=== PATIENT | male | born 1965 | race Caucasian/White ===

== ENCOUNTER 2016-08-28 08:39 | Inpatient (IN) | payer OTHER ==
--- NOTE | ~2016-08-28 | DS ---
Unit #: [id number] #: [id number] Patient: ZELDA JONES [id number] [address] [place], [place] [address] [id number] I MR#: [id number] NAME: ZELDA JONES ROOM: 565 Age: 51 Sex: M Admission Date: 08/28/2016 : 1965 Discharge Date: 08/30/2016 Attending Physician: Balta Wilson M.D. Primary Care Physician: Katelyn Primary Care Physician DISCHARGE SUMMARY CONSULTANTS 1. Dr. Sykes. 2. Dr. Munson. PROCEDURE DONE Incision and drainage of abscess. ADMITTING DIAGNOSIS Infected abscess of right biceps. DISCHARGE DIAGNOSES 1. Infected abscess of right biceps. 2. History of hypertension. 3. Hyperlipidemia. 4. Hepatitis C. HISTORY OF PRESENT ILLNESS The patient is a 51-year-old man with a past medical history of hypertension, history of hepatitis C, hyperlipidemia who presented to the hospital with a chief complaint of pain and swelling in the right arm. Apparently, he noticed a boil. He tried to crush it and the infection spread. In the initial evaluation, he had a temperature up 101, pulse rate 100, respiratory rate 20, blood pressure 145/100. He is admitted for sepsis and surgery was consulted. The sepsis is secondary to skin and soft tissue infections secondary to (1) . He had an I and D of the abscess done. He is getting wound care. Surgery mentioned it is okay to discharge from their standpoint. He had initially 1/2 blood cultures positive. The blood culture came back as coag negative staphylococcus which was a contaminate. ID is consulted. ID recommended to transition antimicrobials to oral at the time of discharge to oral Keflex. He is doing clinically better. He will be discharged home. He is instructed to follow with wound care clinic and also with primary care. His tox screen is positive for opiates, marijuana, and tricyclics. Will be hesitant to give narcotics at the time of discharge, explained in detail to the patient. PHYSICAL EXAMINATION On the day of the discharge: VITAL SIGNS: Temperature 98.4, pulse rate 74, respiratory rate 16, blood pressure 149/98. GENERAL: Patient is alert and oriented x3, lying in the bed in no acute distress. HEENT: Normocephalic and atraumatic. No icterus. PERRLA. Extraocular muscles intact. Unit #: [id number] #: [id number] Patient: ZELDA JONES NECK: Supple. No JVD. HEART: S1, S2. Regular rate and rhythm. CHEST: Bilateral equal air entry. Clear to auscultation. ABDOMEN: Soft, nontender. EXTREMITIES: Right arm in dressing. DISCHARGE MEDICATIONS 1. Keflex 1 g p.o. three times a day for two weeks. 2. Norvasc 5 mg p.o. daily. 3. Ibuprofen 600 mg p.o. q.6 p.r.n. for pain. 4. We are also giving sodium chloride solution for the wound dressing changes. FOLLOWUP He is instructed to follow with his primary care and with wound care physician. Total time spent in his care, 28 minutes. Dictated by... Alisa Wills TD: 09/02/2016 11:46 JOB #: [id number] DISCHARGE SUMMARY X X DISCHARGE SUMMARY
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
--- NOTE | ~2016-08-28 | EKG ---
PATIENT: ZELDA JONES UNIT #: [id number] Ventricular Rate: 73 BPM Atrial Rate: 73 BPM P-R Interval: 170 ms QRS Duration: 94 ms Q-T Interval: 418 ms QTC Calculation(Bezet): 460 ms P [place]: 64 degrees Calculated R [place]: -18 degrees Calculated T [place]: -8 degrees Diagnosis Line: Normal sinus rhythm Diagnosis Line: Normal ECG Diagnosis Line: No previous ECGs available Diagnosis Line: Confirmed by MARK ANTHONY PYLE MD ([id number]) on Diagnosis Line: 08/28/2016 11:29:28 AM INTERPRETING MD: LASHANDA REED
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
--- NOTE | ~2016-08-28 | OR ---
Unit #: [id number] #: [id number] Patient: ZELDA JONES [id number] [address] [place], [place] [address] [id number] I MR#: [id number] NAME: ZELDA JONES ROOM: 565 Date of Procedure: 08/28/2016 Admission Date: 08/28/2016 Surgeon: Isaías Sykes M.D. : 1965 Attending Physician: Balta Wilson M.D. OPERATIVE REPORT PREOPERATIVE DIAGNOSIS Large abscess, right upper arm. POSTOPERATIVE DIAGNOSIS Large abscess, right upper arm. PROCEDURE PERFORMED Incision and drainage of large abscess, right upper arm with sharp excisional debridement of skin and subcutaneous tissues, 10 x 6 cm area. ANESTHESIA General LMA anesthesia with 0.5% Marcaine plain local anesthesia. FINDINGS The patient had a very large abscess extending from the inferior aspect of the deltoid all the way to near the antecubital fossa. Incision and drainage and sharp debridement was performed of this area. FLUIDS 1000 mL of crystalloid. ESTIMATED BLOOD LOSS 20 mL. DRAINS None. TUBES None. SPECIMENS Sent to microbiology. COMPLICATIONS None apparent. CONDITION The patient tolerated the procedure well. INDICATIONS FOR PROCEDURE The patient is a 51-year-old white male, who 4 to 5 days ago developed a boil on lateral aspect of his right upper arm. He tried to thalia this Unit #: [id number] #: [id number] Patient: ZELDA JONES with a pin and since that time, has drained purulent material. He presents at this time for incision and drainage and debridement. DESCRIPTION OF PROCEDURE After obtaining informed consent as well as receiving scheduled antibiotics, the patient was brought to the operating room and after adequate general LMA anesthesia was obtained, had his right upper extremity prepped and draped in a sterile fashion. An incision was made over the area of purulent drainage and a large cavity was entered. A large amount of purulent material was evacuated. The incision was extended inferiorly and superiorly in order to unroof a large portion of the abscess cavity. All loculations were broken up. The patient required some sharp excisional debridement of the overlying skin as it had some degree of ischemia. This was sharply debrided with a scalpel on both the skin and subcutaneous tissue. Some necrotic tissue at the base were sharply debrided as well. A 10 x 6 cm area was involved. Hemostasis was obtained with the Bovie. The wound was irrigated. Hemostasis obtained with the Bovie again and the wound was packed with a saline soaked Kerlix followed by dry dressing and Kerlix wrap and tape. Needle counts, sponge counts, and instrument counts were all correct as reported by the scrub nurse x2. The patient went from the operating room to the recovery room in stable condition. Dictated by... Alisa Rendon/luis TD: 08/29/2016 06:10 JOB #: [id number] CC: [facility] OPERATIVE REPORT X Isaías Sykes MD X PROCEDURE OPERATIVE NOTE
[~2016-08-28 08:39] MED LIST: FLEXERIL10 MG PO; HYDROCHLOROTHIA25 MG PO; LORTAB 5/500 TA1 TA1 PO; MEDROL PO
[2016-08-28 09:00] LABS: BASOPHIL# 0.1 X10e3 (0-0.3); BASOPHIL% 0.4 % (0-2.5); DIFF IND YES; EOSINOPHIL# 0.1 X10e3 (0-0.7); EOSINOPHIL% 0.7 % (0.0-7.0); HEMATOCRIT 44.5 % (38.0-50.0); HEMOGLOBIN 15.1 gm/dL (13.0-16.0); LYMPHOCYTE# 3.1 X10e3 (1.0-3.5); LYMPHOCYTE% 17.4 % (17.0-45.0); MEAN CELL VOLUME 92.4 FL (83-96); MEAN CORPUSCULAR HEMOGLOBIN 31.3 PG (28-34); MEAN CORPUSCULAR HGB CONC 33.9 g/dL (30-36); MEAN PLATELET VOLUME 8.6 FL (6.5-11.5); MONOCYTE# 2.5 X10e3 (0-1.0); MONOCYTE% 14.1 % (3.0-12.0); NEUTROPHIL# 12.2 X10e3 (1.5-7.1); NEUTROPHIL% 67.4 % (40-75); PLATELET COUNT 263 X10e3 (140-420); RED BLOOD COUNT 4.82 X10e (3.90-5.60); RED CELL DISTRIBUTION WIDTH 13.3 % (11.0-15.5)
[2016-08-28 09:26] LABS: BLOOD UREA NITROGEN 13 mg/dL (9-23); BUN/CREATININE RATIO 18.57; CALCIUM SERUM 9.5 mg/dL (8.4-10.2); CARBON DIOXIDE 24 mmol/L (22-31); CHLORIDE 94 mmol/L (100-111); CREATININE SERUM 0.7 mg/dL (0.6-1.4); GLOM FILT RATE Estimated ABOVE60 mL/min (>60); GLUCOSE FASTING 239 mg/dL (70-110); POTASSIUM 3.3 mmol/L (3.5-5.1); SODIUM 131 mmol/L (135-145)
[2016-08-28 09:32] LABS: ALBUMIN SERUM 3.7 g/dL (3.5-5.0); BILIRUBIN, DIRECT 0.2 mg/dL (0.0-0.2); BILIRUBIN,INDIRECT 0.8 mg/dL (0.0-0.9); PROTEIN TOTAL SERUM 7.5 g/dL (6.0-8.3)
[2016-08-28 10:02] LABS: PLATELET ESTIMATE NORMAL (NORMAL)
[2016-08-28 10:03] LABS: RBC NORMAL YES
[2016-08-28 11:21] LABS: AMPHETAMINE NEG (NEG); BARBITURATES NEG (NEG); BENZODIAZEPINES NEG (NEG); COCAINE NEG (NEG); MARIJUANA POS (NEG); OPIATES POS (NEG); TRICYCLIC ANTIDEPRESSANTS POS (NEG); U METHADONE NEG (NEG)
[2016-08-29 05:31] LABS: HEMOGLOBIN 13.3 gm/dL (13.0-16.0); MEAN CELL VOLUME 95.2 FL (83-96); MEAN CORPUSCULAR HEMOGLOBIN 31.7 PG (28-34); MEAN CORPUSCULAR HGB CONC 33.3 g/dL (30-36); MEAN PLATELET VOLUME 9.4 FL (6.5-11.5); RED BLOOD COUNT 4.21 X10e (3.90-5.60); RED CELL DISTRIBUTION WIDTH 13.1 % (11.0-15.5)
[2016-08-29 05:45] LABS: INR 1.2; PROTHROMBIN TIME (PATIENT) 12.3 SECONDS (9.6-11.5)
[2016-08-29 06:24] LABS: ALBUMIN SERUM 2.8 g/dL (3.5-5.0); ALKALINE PHOSPHATASE 78 U/L (32-92); ALT (SGPT) 9 U/L (10-40); AST (SGOT) 11 U/L (10-42); BILIRUBIN,TOTAL 0.5 mg/dL (0.2-2.0); BLOOD UREA NITROGEN 12 mg/dL (9-23); BUN/CREATININE RATIO 17.14; CALCIUM SERUM 8.6 mg/dL (8.4-10.2); CARBON DIOXIDE 28 mmol/L (22-31); CHLORIDE 106 mmol/L (100-111); CREATININE SERUM 0.7 mg/dL (0.6-1.4); GLOM FILT RATE Estimated ABOVE60 mL/min (>60); GLUCOSE FASTING 110 mg/dL (70-110); MAGNESIUM 2.3 mg/dL (1.6-3.0); POTASSIUM 4.4 mmol/L (3.5-5.1); PROTEIN TOTAL SERUM 6.1 g/dL (6.0-8.3)
[2016-08-29 06:38] LABS: SODIUM 142 mmol/L (135-145)
[2016-08-30 05:11] LABS: HEMATOCRIT 38.8 % (38.0-50.0); MEAN CELL VOLUME 94.4 FL (83-96); MEAN CORPUSCULAR HEMOGLOBIN 31.5 PG (28-34); MEAN CORPUSCULAR HGB CONC 33.4 g/dL (30-36); RED BLOOD COUNT 4.11 X10e (3.90-5.60); RED CELL DISTRIBUTION WIDTH 13.1 % (11.0-15.5); WHITE BLOOD COUNT 8.4 X10e3 (4.0-10.5)
[2016-08-30 05:55] LABS: BLOOD UREA NITROGEN 13 mg/dL (9-23); BUN/CREATININE RATIO 18.57; CALCIUM SERUM 8.1 mg/dL (8.4-10.2); CARBON DIOXIDE 25 mmol/L (22-31); CHLORIDE 101 mmol/L (100-111); CREATININE SERUM 0.7 mg/dL (0.6-1.4); GLOM FILT RATE Estimated ABOVE60 mL/min (>60); GLUCOSE FASTING 149 mg/dL (70-110); POTASSIUM 3.8 mmol/L (3.5-5.1); SODIUM 130 mmol/L (135-145)
[2016-08-31] MEDS ORDERED: KEFLEX PO (08:04)
[2016-08-31] MEDS ORDERED: IBUPROFEN600 MG PO (08:05)
[2016-08-31] MEDS ORDERED: NORVASC PO (08:06)
[2016-08-31] MEDS ORDERED: DAKIN'S473 M1 TOP (08:09)
== END 2016-08-31 18:59 | disposition home or self-care (01) | DRG 571 ==
LOC: CED 08:39 → CEDOF 09:50 → C5C 13:37
PROVIDERS: Family Medicine; Internal Medicine; Physician Assistant; Surgery
PROC: 0JBD0ZZ Excision of Right Upper Arm Subcutaneous Tissue and Fascia, Open Approach (ICD-10-PCS; principal; 2016-08-28 17:00)
PROC: B24BZZZ Ultrasonography of Heart with Aorta (ICD-10-PCS; 2016-08-29)
DX: L02.413 Cutaneous abscess of right upper limb (principal); F11.20 Opioid dependence, uncomplicated; I10 Essential (primary) hypertension; F17.210 Nicotine dependence, cigarettes, uncomplicated; E78.5 Hyperlipidemia, unspecified; B19.20 Unspecified viral hepatitis C without hepatic coma; F12.20 Cannabis dependence, uncomplicated; R73.9 Hyperglycemia, unspecified; E87.6 Hypokalemia; Z88.0 Allergy status to penicillin
CPT/HCPCS: 36415; 80048; 80053; 80076; 80307; 82947; 83036; 83605; 83735; 85025; 85027; 85610; 87040; 87070; 87075; 87076; 87205; 93005; 93306; 96361; 96374; 96375; 99285; J0696; J1650; J1815; J1885; J1956; J2250; J2270; J2405; J3010; J3370; J3475

== ENCOUNTER 2016-09-06 01:58 | Emergency (ER) | payer OTHER ==
[~2016-09-06 01:58] MED LIST changes: +DAKIN'S473 M1 TOP; +IBUPROFEN600 MG PO; +KEFLEX PO; +NORVASC PO
== END 2016-09-06 02:04 | disposition home or self-care (01) ==
LOC: CED 01:58
DX: Z48.01 Encounter for change or removal of surgical wound dressing (principal); Z76.0 Encounter for issue of repeat prescription; I10 Essential (primary) hypertension; F17.210 Nicotine dependence, cigarettes, uncomplicated; Z79.899 Other long term (current) drug therapy; Z88.0 Allergy status to penicillin
CPT/HCPCS: 99282

== ENCOUNTER 2017-02-05 20:00 | Inpatient (IN) | payer OTHER ==
[~2017-02-05] VITALS: Ht 172.7 cm; Wt 82.6 kg
--- NOTE | ~2017-02-05 | CO ---
Unit #: [id number] #: [id number] Patient: ZELDA JONES [id number] [facility] [address] [place] [address] [id number] I MR#: [id number] NAME: ZELDA JONES ROOM: [facility] Age: 51 Sex: M Admission Date: 02/05/2017 : 1965 Attending Physician: Kimberley Rodriguez M.D. Primary Care Physician: Primary Care Physician No Consultation Date: 02/09/2017 CONSULTATION REPORT ORDERING PROVIDER Dr. Rodriguez. REASON FOR CONSULT Increased blood pressure. SUBJECTIVE The patient denies being on blood pressure medication currently. He denies any chest pain, headache, or shortness of breath. OBJECTIVE Blood pressure noted to be 177/122 on admission. He was given one time dose of clonidine and blood pressure did go down a little bit, however, it still remained elevated at 147/94. His examination was unremarkable. Heart was regular rate and rhythm. ASSESSMENT High blood pressure. PLAN The patient was started on Norvasc 5 mg yesterday. Blood pressure was rechecked today and he is 139/87. We will continue to monitor. Dictated by... Thor Farias/luis TD: 02/10/2017 00:29 JOB #: [id number] CONSULTATION REPORT Page 1 of 1 X MAR VELÁZQUEZ APRN CONSULTATION REPORT
--- NOTE | ~2017-02-05 | PN ---
Unit #: [id number] #: [id number] Patient: ZELDA JONES [id number] [facility] [address] [place] [address] [id number] I MR#: [id number] NAME: ZELDA JONES ROOM: 82 Age: 51 Sex: M Admission Date: 02/05/2017 : 1965 Attending Physician: Kimberley Rodriguez M.D. Admitting Physician: Kimberley Rodriguez M.D. Primary Care Physician: Primary Care Physician Katelyn MELTON PROGRESS NOTES DATE 02/09/2017 DISCUSSION Mr. Jones is a 51-year-old, white male who was seen today and chart was reviewed and case was discussed with the staff. He has been anxious, withdrawn and rather seclusive to himself. He has been cooperative with the treatment recommendations and appears to be coming out of the detox without any complications. MENTAL STATUS EXAM Middle-aged white male who was casually dressed with fair personal hygiene, appears to be in no acute distress or discomfort. He was awake and alert on interaction with intact orientation. His mood was anxious with congruent affect. His speech was slow and goal directed. He denies any suicidal or homicidal ideation. His insight and judgement remains slightly impaired. TREATMENT PLAN 1. We will continue him on his current medications and treatment protocol. We will monitor his response to the medication and make further adjustments as needed. 2. We will continue to follow up. Dictated by... Alisa Augustine/juliana TD: 02/10/2017 05:35 JOB #: [id number] Unit #: [id number] #: [id number] Patient: ZELDA JONES LINH PROGRESS NOTES Page 1 of 1 X Kimberley Rodriguez MD PROGRESS NOTE
--- NOTE | ~2017-02-05 | PN ---
Unit #: [id number] #: [id number] Patient: ZELDA JONES [id number] [facility] [address] [place] [address] [id number] MR#: [id number] NAME: ZELDA JONES ROOM: [facility] Age: 51 Sex: M Admission Date: 02/05/2017 : 1965 Attending Physician: Kimberley Rodriguez M.D. Admitting Physician: Kimberley Rodriguez M.D. Primary Care Physician: Primary Care Physician Katelyn RICHMOND NOTES DATE OF SERVICE 02/07/2017 DISCUSSION Mr. Jones is a 51-year-old white male with substance abuse and mood disorder who was seen today. Chart was reviewed and case was discussed with the staff. He has been anxious, withdrawn, and rather seclusive to himself and appears to be unkempt, disheveled, in distress and discomfort. Meanwhile, he has been taking the medications and tolerating them fairly well with no reported side effects. MENTAL STATUS EXAMINATION Middle-aged white male who is casually dressed with fair personal hygiene, appears to be in no acute distress or discomfort. The patient was awake and alert with impaired attention and concentration. His mood is anxious with a congruent affect. His speech is slow and restricted in content. His insight and judgment remain significantly impaired. TREATMENT PLAN 1. We will continue him on his current medications and treatment protocol. We will monitor his response to the medications and make further adjustments as needed. 2. We will continue to follow up. Dictated by... Alisa Augustine/scottg TD: 02/07/2017 08:19 JOB #: [id number] Unit #: [id number] #: [id number] Patient: ZELDA JONES PROGRESS NOTES Page 1 of 1 X Kimberley Rodriguez MD PROGRESS NOTE
--- NOTE | ~2017-02-05 | PA ---
Unit #: [id number] #: [id number] [facility]: [facility] [id number] [facility] [address] [place] [address] [id number] MR#: [id number] NAME: ZELDA JONES ROOM: P182 Age: 51 Sex: M Admission Date: 02/05/2017 : 1965 Date of Assessment: 02/06/2017 Attending Physician: Kimberley Rodriguez M.D. Admitting Physician: Kimberley Rodriguez M.D. Primary Care Physician: Primary Care Physician No PSYCHIATRIC ASSESSMENT DATE OF SERVICE 02/06/2017. IDENTIFYING DATA Mr. Jones is a 51-year-old white male, who is a resident of [place], [place], and is known to us from previous encounter, was self-referred to the hospital on a voluntary basis. CHIEF COMPLAINT "Addiction and my depression." HISTORY OF PRESENT ILLNESS Mr. Jones is a 51-year-old white male, who was brought to the hospital reporting history of addiction and depression and stated that he is using one-fifth of whiskey on daily basis in last 4 months. He has had history of delirium tremens and reports that he has been using methamphetamine daily half a gram a day and reports that he has been off for 3 days and reports in addition to those he has been using heroin 1 g IV daily with the last use of meth and heroin and alcohol within the last couple of days, and reports multiple withdrawal symptoms and has been self-medicating himself with Xanax off the street about twice a week and does report increasing depression, anxiety, irritability, restlessness, feelings of hopelessness and helplessness. His CIWA score was 22 and COWS was 18 indicating significant withdrawals from both alcohol and opioids and as such, recommendation for inpatient level of care for safety and stabilization was made. The patient was stepped up to the inpatient unit. SUBSTANCE ABUSE HISTORY The patient reports extensive history of substance abuse and dependence including alcohol, cannabis, opioids, methamphetamine, and benzodiazepines and currently alcohol and opioids appear to be his drug of choice. PAST PSYCHIATRIC HISTORY The patient has had [facility]. Review of the medical records indicate currently he is not active in any treatment program, is not seeing a psychiatrist, and is not taking any psychotropic medications. PAST MEDICAL HISTORY Hypertension. ALLERGIES Penicillin and Tylenol. Unit #: [id number] #: [id number] Patient: ZELDA JONES CURRENT MEDICATIONS None. PERSONAL AND SOCIAL HISTORY A 51-year-old white male, who reports that he is and lives at home with his and has fairly decent social support system. MENTAL STATUS EXAMINATION Middle-aged white male who was casually dressed with fair personal hygiene, appears to be in no acute distress or discomfort. He was awake and alert on interaction with intact orientation to time, place, and person. His mood was anxious and depressed with a congruent affect. His speech was slow and restricted in content. He denies any suicidal or homicidal ideations and also denies any auditory or visual hallucinations. His insight and judgment remain significantly impaired. DIAGNOSTIC IMPRESSION Psychiatric: Major depressive disorder, recurrent, moderate, without psychotic features; alcohol dependence, moderate and acute withdrawals; opioid dependence, moderate and acute withdrawals; methamphetamine dependence, moderate; benzodiazepine abuse, moderate. Medical: None. Stressors: Moderate psychosocial stressors. TREATMENT PLAN 1. The patient has presented with history of mood disorder and substance abuse and has been decompensating and will need inpatient hospitalization for detoxification, safety, and stabilization. We will start him back on his home medications. We will adjust the medications and monitor response. 2. Supportive therapy was provided to the patient. 3. Safe, structured, and nourishing environment will be provided. ESTIMATED LENGTH OF STAY 5 to 7 days. ABILITY TO HELP SELF Limited. WILLINGNESS TO HELP SELF The patient appears to be willing to help self. STRENGTHS 1. Communicative. 2. Cooperative. PROBLEMS 1. Chronic dysphoric symptoms. 2. Chronic chemical dependency. 3. Poor social support system. DISCHARGE CRITERIA This will be contingent upon the patient's ability to show resolution of his depression and anxiety and his ability to go through detox without having any significant withdrawal symptoms as well as ability to stay safe to himself, particularly after discharge from the hospital. Dictated by... Unit #: [id number] #: [id number] Patient: ZELDA JONES Alisa Augustine/luis TD: 02/06/2017 06:44 JOB #: [id number] PSYCHIATRIC ASSESSMENT Page 1 of 1 X Kimberley Rodriguez MD PSYCHIATRIC ASSESSMENT
--- NOTE | ~2017-02-05 | DS ---
Unit #: [id number] #: [id number] Patient: [facility] [id number] [facility] [address] [place] [address] [id number] MR#: [id number] NAME: ZELDA JONES ROOM: [facility] Age: 51 Sex: M Admission Date: 02/05/2017 : 1965 Discharge Date: 02/10/2017 Attending Physician: Kimberley Rodriguez M.D. Primary Care Physician: Primary Care Physician No DISCHARGE SUMMARY IDENTIFYING DATA Mr. Jones is a 51-year-old , white male, resident of [place], [place], and known to us from previous encounters was self-referred to the hospital. HISTORY OF PRESENT ILLNESS Please see initial psychiatric evaluation for details. PAST PSYCHIATRIC HISTORY Please see initial psychiatric evaluation for details. PAST MEDICAL HISTORY Please see initial psychiatric evaluation for details. HOSPITAL COURSE The patient was admitted to the Adult [facility] D[facility] Psychiatric Unit at [facility] and was oriented to the hospital environment. Routine p.r.n. medications were initiated and he was started back on his home medications and alcohol detox protocol was initiated and was closely monitored. He was seen to be anxious, withdrawn, and very seclusive to himself. He was seen to be unkept, disheveled, and unable to carry on a meaningful conversation. Meanwhile, he was taking medications regularly and tolerating them fairly well, and able to show a decent therapeutic response and was willing to continue treatment on an outpatient basis, and as such it was decided that he will be discharged and will continue treatment on outpatient basis. DISCHARGE DIAGNOSES Psychiatric: [place] I Major depressive disorder, recurrent, moderate, without psychotic features. Alcohol dependence, moderate, in acute withdrawal. Opiate dependence, moderate, in acute withdrawal. Amphetamine dependence, moderate. Benzodiazepine abuse, moderate. [place] II [place] III None. [place] IV Mild psychosocial stressors. [place] V DISCHARGE MEDICATIONS Remeron 15 mg at bedtime for depression Unit #: [id number] #: [id number] Patient: ZELDA JONES CONDITION AT DISCHARGE Stable. PROGNOSIS Fair. Dictated by... Alisa Augustine/porfirio TD: 02/12/2017 07:38 JOB #: [id number] DISCHARGE SUMMARY Page 1 of 1 X Kimberley Rodriguez MD DISCHARGE SUMMARY
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
--- NOTE | ~2017-02-05 | PN ---
Unit #: [id number] #: [id number] Patient: ZELDA JONES [id number] [facility] [address] [place] [address] [id number] MR#: [id number] NAME: ZELDA JONES ROOM: [facility] Age: 51 Sex: M Admission Date: 02/05/2017 : 1965 Attending Physician: Kimberley Rodriguez M.D. Admitting Physician: Kimberley Rodriguez M.D. Primary Care Physician: Primary Care Physician Katelyn RICHMOND NOTES DATE OF SERVICE 02/08/2017 DISCUSSION Mr. Jones is a 51-year-old white male who was seen today. Chart was reviewed and case was discussed with the staff. He has been anxious, withdrawn, and rather seclusive to himself. Meanwhile, he has been cooperative with the treatment recommendations and has been taking the medications and tolerating them fairly well with no reported side effects. MENTAL STATUS EXAMINATION Middle-aged white male who is casually dressed with fair personal hygiene, appears to be in no acute distress or discomfort. He was awake and alert on interaction with intact orientation. His mood is anxious with a congruent affect. Speech is slow and tangential. His thought processes were disorganized with some looseness of associations. His insight and judgment remain significantly impaired. TREATMENT PLAN 1. We will continue him on his current medications and treatment protocol. We will monitor his response to the medications and make further adjustments as needed. 2. We will continue to follow up. Dictated by... Alisa Augustine/bzg TD: 02/08/2017 17:25 JOB #: [id number] Unit #: [id number] #: [id number] Patient: ZELDA JONES LINH PROGRESS NOTES Page 1 of 1 X Kimberley Rodriguez MD PROGRESS NOTE
--- NOTE | ~2017-02-05 | CO ---
Unit #: [id number] #: [id number] Patient: SHAWN JONES [id number] [facility] [address] [place] [address] [id number] MR#: [id number] NAME: SHAWN JONES ROOM: [facility] Age: 52 Sex: M Admission Date: 02/05/2017 : 1965 Attending Physician: Kimberley Rodriguez M.D. CONSULTATION REPORT SUBJECTIVE Shawn is a 51-year-old with history of high blood pressure and history of alcohol abuse. He is noncompliant with blood pressure medication. Pressures have been high since admission. We have been asked to assess and treat. OBJECTIVE GENERAL: Alert, well nourished, in no apparent distress. VITAL SIGNS: Blood pressure 146/100, 177/122. Heart rate 88, 92. Respirations 16. Temperature 98.6. CARDIOVASCULAR: Rate and rhythm is regular. CHEST: Lungs clear. EXTREMITIES: No edema. ASSESSMENT High blood pressure, not controlled. The patient has been noncompliant with any kind of blood pressure medication. PLAN Start Norvasc 5 mg one p.o. daily. First dose now. Continue to monitor blood pressure. He will half to follow up with PCP. Dictated by... Dominga Lion P.A.-C. for Alisa Mckeon/luis TD: 02/14/2017 17:37 JOB #: [id number] CONSULTATION REPORT Page 1 of 1 X Dominga Lion CONSULTATION REPORT
[2017-02-06 09:54] LABS: BASOPHIL% 0.4 % (0-2.5); EOSINOPHIL# 0.1 X10e3 (0-0.7); EOSINOPHIL% 0.8 % (0.0-7.0); HEMATOCRIT 46.2 % (38.0-50.0); HEMOGLOBIN 15.6 gm/dL (13.0-16.0); LYMPHOCYTE# 2.7 X10e3 (1.0-3.5); LYMPHOCYTE% 28.3 % (17.0-45.0); MEAN CELL VOLUME 95.5 FL (83-96); MEAN CORPUSCULAR HEMOGLOBIN 32.3 PG (28-34); MEAN CORPUSCULAR HGB CONC 33.8 g/dL (30-36); MEAN PLATELET VOLUME 9.2 FL (6.5-11.5); MONOCYTE# 1.3 X10e3 (0-1.0); NEUTROPHIL# 5.3 X10e3 (1.5-7.1); NEUTROPHIL% 56.5 % (40-75); PLATELET COUNT 211 X10e3 (140-420); RED BLOOD COUNT 4.84 X10e (3.90-5.60); RED CELL DISTRIBUTION WIDTH 13.7 % (11.0-15.5); WHITE BLOOD COUNT 9.4 X10e3 (4.0-10.5)
[2017-02-06 10:07] LABS: ALBUMIN SERUM 4.3 g/dL (3.5-5.0); BILIRUBIN,TOTAL 1.1 mg/dL (0.2-2.0); BUN/CREATININE RATIO 24.54; CALCIUM SERUM 9.7 mg/dL (8.4-10.2); CREATININE SERUM 1.1 mg/dL (0.6-1.4); GLOM FILT RATE Estimated 77.9 mL/min (>60); POTASSIUM 4.3 mmol/L (3.5-5.1); PROTEIN TOTAL SERUM 7.9 g/dL (6.0-8.3)
[2017-02-06 10:14] LABS: DIFF IND NO
== END 2017-02-10 11:15 | disposition home or self-care (01) | DRG 885 ==
LOC: P1E 22:18
PROVIDERS: Psychiatry & Neurology Psychiatry
PROC: HZ2ZZZZ Detoxification Services for Substance Abuse Treatment (ICD-10-PCS; principal; 2017-02-05)
DX: F33.1 Major depressive disorder, recurrent, moderate (principal); F15.20 Other stimulant dependence, uncomplicated; I10 Essential (primary) hypertension; F10.239 Alcohol dependence with withdrawal, unspecified; F13.10 Sedative, hypnotic or anxiolytic abuse, uncomplicated; F41.9 Anxiety disorder, unspecified; B19.20 Unspecified viral hepatitis C without hepatic coma; I25.10 Atherosclerotic heart disease of native coronary artery without angina pectoris; Z95.5 Presence of coronary angioplasty implant and graft; E78.5 Hyperlipidemia, unspecified; E11.9 Type 2 diabetes mellitus without complications; Z88.0 Allergy status to penicillin; F17.210 Nicotine dependence, cigarettes, uncomplicated
CPT/HCPCS: 80053; 85025